=== PATIENT | male | born 1960 | race African-American/Black ===

== ENCOUNTER → 2016-09-21 | Outpatient (CLI) | payer OTHER ==
[~2016-09-21] MED LIST: ASPI-482 PO; CELE200C PO; CHLO500T53 PO; GABA-586 PO; HYDR-2758 PO; IOHEXOL 180 MG/ML 10 ML VIAL. IT ONE; LIDOCAINE 1% Multi-Dose 20 ML VIAL. ID ONE; LISI1TAB7 PO; METH-37 PO
--- NOTE | 2016-09-21 15:51 | KCIC ---
EXAM: Fluoroscopic guided lumbar puncture for lumbar spine CT myelography; lumbar spine CT myelogram; lumbar spine, flexion and extension views. HISTORY: Chronic lower back pain and left greater than right lower extremity radiculopathy. TECHNIQUE: The risks of the procedure were discussed with the patient and written and verbal consent was obtained. A timeout was performed. Fluoroscopic imaging was performed and a site overlying L5-S1 was selected for needle entry. The skin overlying this region was sterilely prepped, draped and infiltrated with 1 percent lidocaine. A 25-gauge needle was advanced into the thecal sac and appropriate needle tip position was confirmed with spontaneous yield of cerebral spinal fluid within the needle hub. 15 cc of Omnipaque 180 intrathecal contrast was then injected into the thecal sac. The needle was removed and a sterile bandage was placed at the needle entry site. Prone, lateral neutral and flexion and extension fluoroscopic images of the lumbar spine were obtained. 6 total fluoroscopic images were obtained for a total fluoroscopy time of 50 seconds. The patient was then transferred to the CT suite for the post injection CT portion of the exam. Frontal, lateral, coned sacral and flexion and extension views of the lumbar spine were obtained prior to contrast administration. The patient tolerated the procedure without difficulty and was discharged in stable condition. *One or more of the following individualized dose reduction techniques were utilized for this examination: 1. Automated exposure control. 2. Adjustment of the mA and/or kV according to patient size. 3. Use of iterative reconstruction technique. COMPARISON: MRI dated 06/28/2016. 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 For the purposes of this dictation, the transitional lumbosacral segment will be considered a partially sacralized L6 segment. There is minimal lumbar levocurvature centered at L4-L5. There is minimal grade 1 anterolisthesis of L4 on L5, measuring 1 mm. This does not change between flexion and extension. There is degenerative endplate remodeling with anterior predominant spurring at all lumbar levels and visualized lower thoracic levels. There is facet arthropathy predominantly at the lower lumbar levels. The CT myelogram portion of the exam redemonstrates a transitional lumbosacral segment, considered a partially sacralized L6 segment for this dictation. Based on this numbering system, there are ununited L1 transverse processes. There is minimal retrolisthesis of and L2 on L3 and L3 on L4 and mild retrolisthesis of L5 on L6 and there is grade 1 anterolisthesis of L4 on L5, the latter of which measures 3 mm. There is degenerative endplate remodeling with disc space narrowing predominantly at L5-L6. There is vacuum phenomenon within the disc space at this level. There are several endplate Schmorl's nodes, the largest of which is seen within the superior endplate of L6. No suspicious lytic or sclerotic osseous lesion is seen. The conus terminates at L1-L2. There is mild epidural lipomatosis at the lower lumbar levels. At L1-L2, there is no stenosis. At L2-L3, there is a diffuse disc bulge and anterior predominant endplate remodeling. There is mild bilateral foraminal stenosis. At L3-L4, there is a diffuse disc bulge and anterior predominant endplate remodeling. There is mild to moderate bilateral foraminal stenosis with abutment of the exiting nerve roots. There is mild central canal stenosis. At L4-L5, there is a suspected broad-based left foraminal to lateral disc protrusion superimposed on a left posterior lateral predominant disc bulge and anterior predominant endplate remodeling. There is moderate bilateral facet arthropathy. There is slight hypertrophy of the ligamentum flavum. There is grade 1 anterolisthesis. There is mild right and moderate left foraminal stenosis with effacement of the exiting left nerve root. There is mild to moderate central canal stenosis. At L5-L6, there is a posterior central to left paracentral disc protrusion superimposed on a disc bulge and anterior predominant endplate remodeling. There is moderate bilateral foraminal stenosis with effacement of the exiting nerve roots. There is mild central canal stenosis and slight effacement of the lateral recesses. At L6-S1, there is a disc bulge and anterior predominant endplate remodeling. The sacralized left aspect of the segment articulates with the underlying sacrum. There is mild right and mild to moderate left foraminal stenosis with effacement of the exiting nerve roots. IMPRESSION: 1. Transitional lumbosacral segment. Given the absence of a chest or thoracic spine imaging study to assess the number of thoracic ribs, this transitional segment is considered to be a partially sacralized L6 segment for this dictation. Based on this numbering system, there are ununited L1 transverse processes. 2. Multilevel degenerative change within the lumbar spine, described in detail above. This results in mild bilateral foraminal stenosis at L2-L3, [id number] bilateral foraminal and mild central canal stenosis L3-L4, mild right and moderate left foraminal and [id number] central canal stenosis L4-L5, moderate bilateral foraminal and mild central canal stenosis L5-L6, and mild right and mild to moderate left foraminal stenosis L6-S1. 3. Minimal anterolisthesis at multiple levels, described above. This does not significantly change between flexion and extension. Electronically signed by: Lilli Alfaro MD (09/21/2016 3:48 PM) [id number]
== END | disposition home or self-care (01) ==
LOC: KCIC 13:42
PROVIDERS: ATTEND Neurological Surgery
DX: M51.16 Intervertebral disc disorders with radiculopathy, lumbar region (principal); M48.06 Spinal stenosis, lumbar region; I10 Essential (primary) hypertension; Z79.01 Long term (current) use of anticoagulants
CPT/HCPCS: 72110; 72132; 72265